=== PATIENT | male | born 1965 | race African-American/Black ===

== ENCOUNTER 2021-09-21 13:11 | Emergency (ER) | payer OTHER ==
[2021-09-21 13:47] VITALS: BP 130/87; PULSE 98; RESP 20; TEMP 99
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
== END 2021-09-21 15:13 | disposition home or self-care (01) ==
LOC: EC 13:11
DX: J01.90 Acute sinusitis, unspecified (principal); F41.9 Anxiety disorder, unspecified; F31.9 Bipolar disorder, unspecified; F43.12 Post-traumatic stress disorder, chronic; F17.200 Nicotine dependence, unspecified, uncomplicated; F12.90 Cannabis use, unspecified, uncomplicated; Z20.822 Contact with and (suspected) exposure to COVID-19
CPT/HCPCS: 87635; 99283